=== PATIENT | female | born 1970 | race Hispanic/Latino ===

== ENCOUNTER 2016-12-24 11:59 | Emergency (ER) | payer OTHER ==
[2016-12-24 12:03] VITALS: BMI 26.5
[2016-12-24] MEDS ORDERED: Naproxen 550 mg Tab PO STA (12:21)
[2016-12-24] MEDS ORDERED: Silver Sulfadiazine 1% Cream (20 gm) TOP STA (12:21)
[2016-12-24] MEDS ORDERED: TDAP Vaccine 0.5 mL Syr IM ONE (12:21)
--- NOTE | 2016-12-24 12:25 | ED PDOC ---
Arrival/HPI - General Chief Complaint: Burn Time Seen by Provider: 12/24/16 12:20 Historian: Patient - History of Present Illness Narrative History of Present Illness (Text): 12/24/16 12:21 46 yo F presents with a burn to the inner L arm after she burned it on a light bulb at work 1 hr ago. Denies any fever, trauma, numbness, decrease in ROM of the arm, reports no other injury and has no other complaints at this time. SUYAPA Merritt Past Medical History - Provider Review Nursing Documentation Reviewed: Yes - Tetanus Immunization Tetanus Immunization: Unknown - Past Medical History Past Medical History: No Previous - Cardiac Hx Cardiac Disorders: No - Pulmonary Hx Respiratory Disorders: No - Neurological Hx Neurological Disorder: No - HEENT Hx HEENT Disorder: No - Renal Hx Renal Disorder: No - Endocrine/Metabolic Hx Endocrine Disorders: No - Hematological/Oncological Hx Blood Disorders: No - Integumentary Hx Dermatological Disorder: No - Musculoskeletal/Rheumatological Hx Musculoskeletal Disorders: No - Gastrointestinal Hx Gastrointestinal Disorders: No - Genitourinary/Gynecological Hx Genitourinary Disorders: No - Psychiatric Hx Psychophysiologic Disorder: No Hx Substance Use: No - Surgical History Hx Section: Yes - Anesthesia Hx Anesthesia: Yes Hx Anesthesia Reactions: No Hx Malignant Hyperthermia: No - Suicidal Assessment Feels Threatened In Home Enviroment: No Family/Social History - Physician Review Nursing Documentation Reviewed: Yes Family/Social History: No Known Family HX Smoking Status: Never Smoked Hx Alcohol Use: No Hx Substance Use: No Allergies/Home Meds Allergies/Adverse Reactions: Allergies No Known Allergies Allergy (Verified 12/24/16 12:12) Review of Systems - Review of Systems Constitutional: Normal. absent: Fatigue, Weight Change, Fevers Musculoskeletal: Normal. absent: Arthralgias, Back Pain, Neck Pain Skin: Normal, Other (burn). absent: Rash, Pruritis, Skin Lesions Physical Exam Vital Signs Reviewed: Yes Temperature: Afebrile Blood Pressure: Normal Pulse: Regular Respiratory Rate: Normal Appearance: Positive for: Well-Appearing, Non-Toxic, Comfortable Pain Distress: Mild Mental Status: Positive for: Alert and Oriented X 3 - Systems Exam Upper Extremity: Present: Normal ROM, NORMAL PULSES, Neurovascularly Intact, Capillary Refill < 2s, Norm 2-Pt Discrimination. No: Cyanosis, Edema, Tenderness, Swelling, Temperature Abnormalties, Deformity Neurological: Present: GCS=15, CN II-XII Intact, Motor Func Grossly Intact, Normal Sensory Function Skin: Present: Warm, Dry, Normal Color, Other (2 oval shaped first degree burn measuring each ~2-3 cm in size in the inner aspect of the L arm with no surrounding erythema or edema). No: Rashes Medical Decision Making ED Course and Treatment: 12/24/16 12:25 46 yo F presents with a burn to the inner L arm after she burned it on a light bulb at work 1 hr ago. Plan: - Tdap - Naprosyn - Silvadene - Wound care RX sent to pt's pharmacy. Advised to f/u with pmd or employee health in 2 days for re-evaluation and wound check, instructed to return to the ER at any time for any new or worsening symptoms. - PA / HOSPITAL AIDE / Resident Statement / has reviewed & agrees with the documentation as recorded. Disposition/Present on Arrival - Present on Arrival Any Indicators Present on Arrival: No History of DVT/PE: No History of Uncontrolled Diabetes: No Urinary Catheter: No History of Decub. Ulcer: No History Surgical Site Infection Following: None - Disposition Have Diagnosis and Disposition been Completed?: Yes Diagnosis: Burn Disposition: HOME/ ROUTINE Disposition Time: 12:15 Patient Plan: Discharge Condition: STABLE Print Language: FIJIAN Additional Instructions: Follow up with employee health or your pmd in 2 days for wound check. Return to the ER at any time for any new or worsening symptoms. Prescriptions: Silver Sulfadiazine 1% 20 gm [Silvadene 1%] 1 ea TOP BID #1 tube
== END 2016-12-24 13:07 | disposition home or self-care (01) ==
LOC: ED 11:59
DX: T22.10XA Burn of first degree of shoulder and upper limb, except wrist and hand, unspecified site, initial encounter (principal); X08.8XXA Exposure to other specified smoke, fire and flames, initial encounter; Y99.0 Civilian activity done for income or pay; Z23 Encounter for immunization

== ENCOUNTER 2018-08-18 07:10 | Outpatient (CLI) | payer OTHER | END 2018-08-18 07:11 | disposition home or self-care (01) | LOC: LAB 07:10 ==

== ENCOUNTER → 2018-10-07 | Outpatient (CLI) | payer OTHER | LOC: LAB 07:08 ==